=== PATIENT | female | born 1990 | race Caucasian/White ===

== ENCOUNTER 2017-12-04 07:40 | Day surgery (SDC) | payer OTHER ==
[2017-12-04] MEDS ORDERED: LIDOCAINE 1%/EPI 30 ML INJ (08:58)
[2017-12-04] MEDS ORDERED: MIDAZOLAM 1 MG/ML 2 ML INJ (09:35)
[2017-12-04] MEDS ORDERED: FENTAnyl 50 MCG/ML VIAL (09:36)
[2017-12-04] MEDS: LIDOCAINE 1%/EPI 30 ML INJ (09:46)
[2017-12-04] MEDS ORDERED: CEFAZOLIN 2 GM/50 ML (PMX) 50 ML IVPB (10:00)
[2017-12-04] MEDS ORDERED: LACTATED RINGER'S 1,000 ML IV* (10:00)
[2017-12-04] MEDS ORDERED: NEOSTIGMINE 3 MG/3 ML SYRINGE (10:10)
[2017-12-04] MEDS ORDERED: GLYCOPYRROLATE 0.4 MG INJ (10:10)
[2017-12-04] MEDS ORDERED: LIDOCAINE 2% (SDV) 5 ML INJ (10:10)
[2017-12-04] MEDS ORDERED: PROPOFOL 20 ML (10:10)
[2017-12-04] MEDS ORDERED: ROCURONIUM 50 MG INJ (10:10)
[2017-12-04] MEDS ORDERED: CEFAZOLIN 1 GM INJ (10:11)
[2017-12-04] MEDS ORDERED: ONDANSETRON 4 MG INJ (10:12)
[2017-12-04] MEDS ORDERED: HYDROmorphONE (0.2 MG/ML) 10ML SYG IV ×2 (11:00)
[2017-12-04] MEDS ORDERED: DIPHENHYDRAMINE 50 MG INJ IV (11:00)
[2017-12-04] MEDS ORDERED: ONDANSETRON 4 MG INJ IV (11:00)
[2017-12-04] MEDS ORDERED: METOCLOPRAMIDE 10 MG INJ IV (11:00)
[2017-12-04] MEDS ORDERED: FENTAnyl 50 MCG/ML VIAL IV (11:00)
[2017-12-04] MEDS ORDERED: MEPERIDINE 25 MG INJ IV (11:00)
[2017-12-04] MEDS ORDERED: KETOROLAC 30 MG INJ IV (11:00)
== END 2017-12-04 12:38 | disposition home or self-care (01) ==
LOC: SDS 07:40
DX: Z30.2 Encounter for sterilization (principal)
CPT/HCPCS: 58565; 84703